=== PATIENT | male | born 1950 | race Caucasian/White ===

== ENCOUNTER 2021-06-04 11:10 | Inpatient (IN) | payer MEDICARE ==
[2021-06-04 11:36] LABS: #Eosinphils 0.1 thou/uL (0.0-0.7); #Lymphocytes 1.2 thou/uL (1.20-3.40); #Monocytes 0.6 thou/uL (0.11-0.59); #Neutrophils 6.7 thou/uL (1.40-6.50); %Basophils 0.1 % (0.0-1.0); %Eosinophils 0.9 % (0.0-10.0); %Lymphocytes 14.2 % (21.0-51.0); %Monocytes 6.9 % (0.0-10.0); Hemoglobin 12.3 g/dL (14.0-18.0); Mean Corpuscular HGB CONC 33.3 g/dL (32.0-36.0); Mean Corpuscular Hemoglobin 31.9 pg (27.0-31.0); Mean Corpuscular Volume 95.8 fL (78.0-98.0); Mean Platelet Volume 7.3 fL (7.4-10.4); Platelet Count 151 thou/uL (130-400); RBC Distribution Width 12.3 % (11.5-14.5); Red Blood Cell (RBC) Count 3.84 mill/uL (4.70-6.10); White Blood Cell (WBC) Count 8.6 thou/uL (4.8-10.8)
[2021-06-04 11:46] LABS: ALT (SGPT) 131 U/L (8-55); AST (SGOT) 141 U/L (5-34); Albumin 3.4 g/dL (3.4-4.8); Alkaline Phosphatase 48 U/L (40-110); Anion Gap 12 mmol/L (10-20); BUN (Urea Nitrogen) 15 mg/dL (8.4-25.7); Bilirubin, Total 0.6 mg/dL (0.2-1.2); Calc. Creatinine Clearance 0 mL/min (70-130); Calcium 8.4 mg/dL (7.8-10.44); Carbon Dioxide 23 mmol/L (23-31); Chloride 106 mmol/L (98-107); Globulin 2.4 g/dL (2.4-3.5); Glucose 148 mg/dL (83-110); Potassium 4.4 mmol/L (3.5-5.1); Protein, Total 5.8 g/dL (5.8-8.1); Sodium 137 mmol/L (136-145)
[2021-06-04] MEDS ORDERED: Iopamidol-370 76% 500 ML 1 ML ONE (12:04)
[2021-06-04 12:40] LABS: INR-International Normal Ratio 1.1
[2021-06-04 12:41] LABS: PTT 31.4 sec (22.9-36.1)
[2021-06-04 12:47] LABS: SARS-CoV-2 NAA Rapid Test DETECTED (NotDetected)
[2021-06-04 12:59] LABS: Lactic Acid 1.5 mmol/L (0.5-2.2)
[2021-06-04] MEDS ORDERED: Dextrose 5% in Water 1,000 ML IV PRN (13:01)
[2021-06-04] MEDS ORDERED: Ondansetron PF 4 MG/2 ML Vial IVP PRN (13:01)
[2021-06-04] MEDS ORDERED: hydrALAZINE 20 MG/ML VIAL SLOW IVP PRN (13:01)
[2021-06-04] MEDS ORDERED: Morphine 4 MG/ML VIAL SLOW IVP PRN (13:01)
[2021-06-04] MEDS ORDERED: Dextrose 50% Abboject 50 ML SYRINGE SLOW IVP PRN (13:01)
[2021-06-04] MEDS ORDERED: traMADol HCl 50 MG TAB PO PRN ×2 (13:06)
[2021-06-04 13:09] LABS: Magnesium 1.9 mg/dL (1.6-2.6); Phosphorus 3.3 mg/dL (2.3-4.7)
[2021-06-04] MEDS ORDERED: Sodium Chloride 0.9% 1,000 ML IV SCH ×2 (13:15→17:15)
[2021-06-04] MEDS ORDERED: Acetaminophen 500 MG TAB PO SCH (13:30)
[2021-06-04] MEDS: Gabapentin 100 MG CAP PO SCH ×2 (15:19→20:22)
[2021-06-04 15:57] VITALS: BMI 29.2
[2021-06-04] MEDS: Acetaminophen 500 MG TAB PO SCH (17:53)
[2021-06-04 18:01] LABS: Bacteria/HPF None Seen HPF (None Seen); Bilirubin Negative (Negative); Blood, Urine 3+ (Negative); Glucose, Urine (Dipstick) Normal (Negative); Ketone, Urine Negative (Negative); Leukocyte 250 Leu/uL (Negative); Nitrite Negative (Negative); Protein, Urine (Dipstick) 70 mg/dL (Neg-Trace); RBC/HPF Greater than 50 HPF (0-3); Specific Gravity, Urine 1.042 (1.002-1.036); Squamous Epithelial None Seen HPF (0-3); Urobilinogen Normal mg/dL (Less than 2); WBC/HPF Greater than 50 HPF (0-3); pH, Urine 5.5 (5.0-9.0)
[2021-06-04 18:06] LABS: Clarity Cloudy (Clear)
[2021-06-04 18:08] LABS: Urine Culture Reflex Yes Yes
[2021-06-04] MEDS: Sodium Chloride 0.9% 1,000 ML IV SCH (18:10)
[2021-06-04 18:19] LABS: Hemoglobin 11.2 g/dL (14.0-18.0); Mean Corpuscular HGB CONC 34.3 g/dL (32.0-36.0); Mean Corpuscular Hemoglobin 33.2 pg (27.0-31.0); Mean Corpuscular Volume 96.8 fL (78.0-98.0); Mean Platelet Volume 7.3 fL (7.4-10.4); Platelet Count 134 thou/uL (130-400); RBC Distribution Width 12.3 % (11.5-14.5); Red Blood Cell (RBC) Count 3.36 mill/uL (4.70-6.10); White Blood Cell (WBC) Count 11.5 thou/uL (4.8-10.8)
[2021-06-04] MEDS: Senokot S 8.6-50 MG TAB PO SCH (20:23)
[2021-06-04] MEDS: Famotidine/PF 20 mg/2ml Vial SLOW IVP SCH (20:23)
[2021-06-04] MEDS ORDERED: Amitriptyline HCl 25 MG TAB PO SCH (21:45)
[2021-06-04] MEDS: Cyclobenzaprine 10 MG TAB PO PRN (21:57)
[2021-06-05] MEDS: Acetaminophen 500 MG TAB PO SCH ×4 (00:02→17:14)
[2021-06-05] MEDS: Sodium Chloride 0.9% 1,000 ML IV SCH ×4 (00:40→20:39)
[2021-06-05 07:09] LABS: Anion Gap 10 mmol/L (10-20); BUN (Urea Nitrogen) 16 mg/dL (8.4-25.7); Calc. Creatinine Clearance 89 mL/min (70-130); Calcium 7.8 mg/dL (7.8-10.44); Carbon Dioxide 25 mmol/L (23-31); Chloride 108 mmol/L (98-107); Glucose 116 mg/dL (83-110); Magnesium 1.9 mg/dL (1.6-2.6); Phosphorus 3.5 mg/dL (2.3-4.7); Sodium 139 mmol/L (136-145)
[2021-06-05 07:42] LABS: #Eosinphils 0.1 thou/uL (0.0-0.7); #Lymphocytes 1.4 thou/uL (1.20-3.40); #Monocytes 0.9 thou/uL (0.11-0.59); #Neutrophils 4.9 thou/uL (1.40-6.50); %Basophils 0.1 % (0.0-1.0); %Eosinophils 0.8 % (0.0-10.0); %Lymphocytes 19.1 % (21.0-51.0); %Monocytes 12.6 % (0.0-10.0); %Neutrophils 67.4 % (42.0-75.0); Hemoglobin 9.8 g/dL (14.0-18.0); MDiff Complete? YES; Mean Corpuscular HGB CONC 35.2 g/dL (32.0-36.0); Mean Corpuscular Hemoglobin 33.6 pg (27.0-31.0); Mean Corpuscular Volume 95.4 fL (78.0-98.0); Mean Platelet Volume 7.2 fL (7.4-10.4); Platelet Count 117 thou/uL (130-400); Platelet Morphology Comment Appears Decreased; RBC Distribution Width 12.3 % (11.5-14.5); Red Blood Cell (RBC) Count 2.91 mill/uL (4.70-6.10); White Blood Cell (WBC) Count 7.2 thou/uL (4.8-10.8)
[2021-06-05] MEDS: Gabapentin 100 MG CAP PO SCH (08:41)
[2021-06-05] MEDS: Famotidine/PF 20 mg/2ml Vial SLOW IVP SCH ×2 (08:41→20:58)
[2021-06-05] MEDS: Senokot S 8.6-50 MG TAB PO SCH ×2 (08:41→20:41)
[2021-06-05] MEDS: Cyclobenzaprine 10 MG TAB PO PRN (08:41)
[2021-06-05] MEDS: Polyethylene Glycol 3350 17 GM Packet PO SCH (08:41)
[2021-06-05] MEDS: traMADol HCl 50 MG TAB PO SCH ×2 (11:21→17:13)
[2021-06-05] MEDS ORDERED: Lidocaine 5% Patch TD SCH (11:30)
[2021-06-05] MEDS: Gabapentin 300 MG CAP PO SCH ×2 (15:06→20:39)
[2021-06-05 18:15] LABS: SARS-CoV-2 PCR by NAA Not Detected (NotDetected)
[2021-06-05 18:29] LABS: Hemoglobin 9.6 g/dL (14.0-18.0)
[2021-06-05] MEDS: Amitriptyline HCl 25 MG TAB PO SCH (20:39)
[2021-06-05] MEDS: Ciprofloxacin 500 MG TAB PO SCH (20:45)
[2021-06-06] MEDS: Acetaminophen 500 MG TAB PO SCH ×2 (00:40→05:55)
[2021-06-06] MEDS: traMADol HCl 50 MG TAB PO SCH ×2 (00:40→05:55)
[2021-06-06] MEDS: Sodium Chloride 0.9% 1,000 ML IV SCH (04:22)
[2021-06-06] MEDS: Ciprofloxacin 500 MG TAB PO SCH ×2 (05:55→20:58)
[2021-06-06 06:01] LABS: Hemoglobin 8.3 g/dL (14.0-18.0)
[2021-06-06 06:22] LABS: Anion Gap 9 mmol/L (10-20); BUN (Urea Nitrogen) 12 mg/dL (8.4-25.7); Calc. Creatinine Clearance 107 mL/min (70-130); Calcium 7.8 mg/dL (7.8-10.44); Carbon Dioxide 24 mmol/L (23-31); Chloride 110 mmol/L (98-107); Glucose 87 mg/dL (83-110); Magnesium 1.8 mg/dL (1.6-2.6); Phosphorus 2.8 mg/dL (2.3-4.7); Potassium 3.8 mmol/L (3.5-5.1); Sodium 139 mmol/L (136-145)
[2021-06-06] MEDS ORDERED: Magnesium 2 GM/50 ML 2 GM in Premix Bag 1 BAG IVPB SCH (08:15)
[2021-06-06] MEDS ORDERED: PHOS-NAK 1 PKT PACK PO SCH (08:15)
[2021-06-06] MEDS: Gabapentin 300 MG CAP PO SCH ×3 (08:45→20:58)
[2021-06-06] MEDS: Senokot S 8.6-50 MG TAB PO SCH ×2 (08:45→20:58)
[2021-06-06] MEDS: Polyethylene Glycol 3350 17 GM Packet PO SCH (08:45)
[2021-06-06] MEDS: Lidocaine 5% Patch TD SCH (08:45)
[2021-06-06] MEDS ORDERED: Acetaminophen/Codeine 30-300mg Tablet PO PRN (10:19)
[2021-06-06] MEDS: Acetaminophen 325 MG TAB PO SCH ×3 (11:12→22:18)
[2021-06-06] MEDS: Acetaminophen/Codeine 30-300mg Tablet PO SCH ×3 (11:13→22:18)
[2021-06-06] MEDS: Cyclobenzaprine 10 MG TAB PO PRN (15:32)
[2021-06-06] MEDS: Amitriptyline HCl 25 MG TAB PO SCH (20:58)
[2021-06-06] MEDS: LIDOCAINE Patch Removal TOP SCH (20:58)
[2021-06-07] MEDS: Ciprofloxacin 500 MG TAB PO SCH ×2 (05:03→20:24)
[2021-06-07] MEDS: Acetaminophen 325 MG TAB PO SCH ×4 (05:03→23:28)
[2021-06-07] MEDS: Acetaminophen/Codeine 30-300mg Tablet PO SCH ×5 (05:03→23:28)
[2021-06-07 05:06] LABS: #Eosinphils 0.1 thou/uL (0.0-0.7); #Lymphocytes 1.1 thou/uL (1.20-3.40); #Monocytes 0.7 thou/uL (0.11-0.59); #Neutrophils 3.2 thou/uL (1.40-6.50); %Eosinophils 1.8 % (0.0-10.0); %Lymphocytes 21.5 % (21.0-51.0); %Neutrophils 62.7 % (42.0-75.0); Hemoglobin 8.1 g/dL (14.0-18.0); Mean Corpuscular HGB CONC 34.8 g/dL (32.0-36.0); Mean Corpuscular Hemoglobin 33.3 pg (27.0-31.0); Mean Corpuscular Volume 95.6 fL (78.0-98.0); Platelet Count 112 thou/uL (130-400); RBC Distribution Width 12.3 % (11.5-14.5); Red Blood Cell (RBC) Count 2.43 mill/uL (4.70-6.10)
[2021-06-07 05:23] LABS: Anion Gap 9 mmol/L (10-20); BUN (Urea Nitrogen) 10 mg/dL (8.4-25.7); Calc. Creatinine Clearance 110 mL/min (70-130); Calcium 7.9 mg/dL (7.8-10.44); Carbon Dioxide 25 mmol/L (23-31); Chloride 108 mmol/L (98-107); Glucose 128 mg/dL (83-110); Magnesium 2.1 mg/dL (1.6-2.6); Phosphorus 2.9 mg/dL (2.3-4.7); Potassium 3.7 mmol/L (3.5-5.1); Sodium 138 mmol/L (136-145)
[2021-06-07] MEDS: Senokot S 8.6-50 MG TAB PO SCH ×2 (07:37→20:25)
[2021-06-07] MEDS: Polyethylene Glycol 3350 17 GM Packet PO SCH (07:37)
[2021-06-07] MEDS: Gabapentin 300 MG CAP PO SCH ×3 (07:37→20:24)
[2021-06-07] MEDS: Lidocaine 5% Patch TD SCH ×2 (07:37→16:32)
[2021-06-07] MEDS: Cyclobenzaprine 10 MG TAB PO PRN (07:37)
[2021-06-07] MEDS ORDERED: Potassium Phosphate 15 MMOL in Sodium Chloride 0.9% 250 ML 250 ML IVPB SCH (07:50)
[2021-06-07] MEDS: Amitriptyline HCl 25 MG TAB PO SCH (20:24)
[2021-06-07] MEDS: LIDOCAINE Patch Removal TOP SCH (20:25)
[2021-06-08] MEDS: Acetaminophen 325 MG TAB PO SCH ×2 (05:22→11:57)
[2021-06-08] MEDS: Acetaminophen/Codeine 30-300mg Tablet PO SCH ×2 (05:22→11:58)
[2021-06-08] MEDS: Ciprofloxacin 500 MG TAB PO SCH (05:22)
[2021-06-08 05:48] LABS: #Eosinphils 0.1 thou/uL (0.0-0.7); #Lymphocytes 1.2 thou/uL (1.20-3.40); #Monocytes 0.6 thou/uL (0.11-0.59); #Neutrophils 2.4 thou/uL (1.40-6.50); %Basophils 0.1 % (0.0-1.0); %Eosinophils 1.7 % (0.0-10.0); %Lymphocytes 29.2 % (21.0-51.0); %Monocytes 13.4 % (0.0-10.0); %Neutrophils 55.5 % (42.0-75.0); Hemoglobin 8.3 g/dL (14.0-18.0); Mean Corpuscular HGB CONC 34.4 g/dL (32.0-36.0); Mean Corpuscular Hemoglobin 33.5 pg (27.0-31.0); Mean Corpuscular Volume 97.5 fL (78.0-98.0); Mean Platelet Volume 6.4 fL (7.4-10.4); Platelet Count 120 thou/uL (130-400); RBC Distribution Width 12.5 % (11.5-14.5); Red Blood Cell (RBC) Count 2.47 mill/uL (4.70-6.10); White Blood Cell (WBC) Count 4.3 thou/uL (4.8-10.8)
[2021-06-08 07:04] LABS: Anion Gap 9 mmol/L (10-20); BUN (Urea Nitrogen) 7 mg/dL (8.4-25.7); Calc. Creatinine Clearance 106 mL/min (70-130); Calcium 8.4 mg/dL (7.8-10.44); Carbon Dioxide 28 mmol/L (23-31); Chloride 106 mmol/L (98-107); Glucose 110 mg/dL (83-110); Magnesium 2.1 mg/dL (1.6-2.6); Phosphorus 4.2 mg/dL (2.3-4.7); Potassium 3.7 mmol/L (3.5-5.1); Sodium 139 mmol/L (136-145)
[2021-06-08] MEDS: Gabapentin 300 MG CAP PO SCH ×2 (08:06→15:17)
[2021-06-08] MEDS: Lidocaine 5% Patch TD SCH (08:07)
[2021-06-08] MEDS: Polyethylene Glycol 3350 17 GM Packet PO SCH (08:08)
[2021-06-08] MEDS: Senokot S 8.6-50 MG TAB PO SCH (08:08)
[2021-06-08] MEDS: Cyclobenzaprine 10 MG TAB PO PRN (08:15)
[2021-06-08] MEDS ORDERED: Ascorbic Acid 500 mg Chewable Tablet PO SCH (09:00)
[2021-06-08] MEDS ORDERED: Ferrous Sulfate 325 MG TAB PO SCH (17:00)
[2021-06-08 17:02] VITALS: BP 137/83; TEMP 98.7
== END 2021-06-08 17:01 | disposition home or self-care (01) | DRG 698 ==
LOC: ERS 11:10 → SJJU 13:01
PROVIDERS: ADMIT Specialist; ATTEND Surgery
DX: S37.061A Major laceration of right kidney, initial encounter (principal); U07.1 COVID-19; N39.0 Urinary tract infection, site not specified; S22.41XA Multiple fractures of ribs, right side, initial encounter for closed fracture; J90 Pleural effusion, not elsewhere classified; I10 Essential (primary) hypertension; M19.90 Unspecified osteoarthritis, unspecified site; Z96.642 Presence of left artificial hip joint; W55.29XA Other contact with cow, initial encounter; S00.01XA Abrasion of scalp, initial encounter; G89.29 Other chronic pain; G51.0 Bell's palsy; M54.50 Low back pain, unspecified; Z79.899 Other long term (current) drug therapy
CPT/HCPCS: 36415; 70450; 71045; 72125; 72170; 74177; 80048; 80053; 81001; 82550; 83605; 83735; 84100; 85014; 85018; 85025; 85610; 85730; 86850; 86900; 86901; 87077; 87086; 87186; 94640; G0390; J2270; J3475; J7050; J7620; Q9967; S0028; U0002; U0003; U0005